=== PATIENT | male | born 1980 | race Caucasian/White ===

== ENCOUNTER 2025-07-15 23:43 | Emergency (ER) | payer MEDICAID ==
[~2025-07-15] VITALS: Ht 170.2 cm; Wt 141.0 kg
[2025-07-16 00:21] VITALS: O2SAT 100
[2025-07-16] MEDS: TETANUS, DIPHTHERIA, PERTUSSIS VAC/PF 0.5ML (>10YR OLD) IM ONE (01:39)
[2025-07-16 01:40] VITALS: BP 157/104; PULSE 88; RESP 16; TEMP 36.9; O2SAT 99
== END 2025-07-16 01:48 | disposition home or self-care (01) ==
LOC: ER 23:43
DX: S61.214A Laceration without foreign body of right ring finger without damage to nail, initial encounter (principal); I10 Essential (primary) hypertension; X58.XXXA Exposure to other specified factors, initial encounter; Y93.89 Activity, other specified; Y92.89 Other specified places as the place of occurrence of the external cause; Y99.8 Other external cause status
CPT/HCPCS: 99283; 90715; 90471; Z7610